=== PATIENT | male | born 1960 | race Caucasian/White ===

== ENCOUNTER 2016-05-01 12:36 | Inpatient (IN) | payer MEDICARE, OTHER ==
[~2016-05-01] VITALS: Ht 205.7 cm; Wt 74.8 kg
[2016-05-01] MEDS ORDERED: IV NS 0.9% 1,000 ML IV PRN (13:49)
[2016-05-01 14:00] VITALS: BP 132/82
[2016-05-01] MEDS ORDERED: MAGNESIUM HYDROXIDE 30 ML UDC PO PRN (14:00)
[2016-05-01] MEDS ORDERED: HYDROCODONE/APAP 5/325MG 1 EACH TABLET PO PRN (14:00)
[2016-05-01] MEDS ORDERED: ZOLPIDEM TARTRATE 5 MG TABLET PO PRN (14:00)
[2016-05-01] MEDS ORDERED: Z GUARD REMEDY 2 OZ OINT TP PRN (14:00)
[2016-05-01] MEDS ORDERED: ONDANSETRON HCL/PF 4 MG/2 ML VIAL IVP PRN (14:00)
[2016-05-01] MEDS ORDERED: MORPHINE SULFATE INJ 2 MG/ML DISP.SYRIN IV PRN (14:00)
[2016-05-01] MEDS ORDERED: ACETAMINOPHEN 325 MG TABLET PO PRN (14:00)
[2016-05-01] MEDS ORDERED: MAG HYDROX/AL HYDROX/SIMETH 30 ML UDC PO PRN (14:00)
[2016-05-01] MEDS ORDERED: FENTANYL PF 100MCG/2ML AMPUL ONE (15:04)
[2016-05-01] MEDS ORDERED: MIDAZOLAM HCL 2 MG/2ML VIAL ONE (15:05)
[2016-05-01] MEDS ORDERED: BUPIVACAINE MPF 0.5% W/EPI INJ 30 ML VIAL ONE (15:44)
[2016-05-01] MEDS ORDERED: BACITRACIN 50000 UNITS/VIAL ONE (15:44)
[2016-05-01] MEDS ORDERED: BUPIVACAINE 0.5 % PF 150 MG/30 ML VIAL ONE (15:44)
[2016-05-01 16:00] VITALS: BP 147/100
[2016-05-01] MEDS ORDERED: HYDROMORPHONE 1 MG/1 ML DISP.SYRIN ONE (16:22)
[2016-05-01] MEDS ORDERED: oxyCODONE/APAP (5/325 MG) 1 UDTAB TABLET PO PRN ×2 (17:30)
[2016-05-01 20:16] VITALS: BP 118/75
[2016-05-02] MEDS ORDERED: PANTOPRAZOLE 40 MG TABLET.DR PO SCH (07:30)
[2016-05-02] MEDS ORDERED: ASPIRIN 325 MG TABLET PO SCH (13:00)
== END 2016-05-01 23:03 | DRG 494 ==
LOC: DS 12:36 → MED 12:41
PROVIDERS: ADMIT Student in an Organized Health Care Education/Training Program; ATTEND Student in an Organized Health Care Education/Training Program
PROC: 0QSJ04Z Reposition Right Fibula with Internal Fixation Device, Open Approach (ICD-10-PCS; principal; 2016-05-01 14:30)
DX: S82.61XA Displaced fracture of lateral malleolus of right fibula, initial encounter for closed fracture (principal); X58.XXXA Exposure to other specified factors, initial encounter; Y93.9 Activity, unspecified; Y92.89 Other specified places as the place of occurrence of the external cause; Y99.9 Unspecified external cause status
CPT/HCPCS: 73600-TC; A4606; A6402; C1713; J1170; J2250; J3010; J3490; Z7610